=== PATIENT | male | born 1970 | race Caucasian/White ===

== ENCOUNTER 2021-01-30 17:38 | Inpatient (IN) | payer OTHER ==
[~2021-01-30] VITALS: Ht 175.3 cm; Wt 121.1 kg
[2021-01-30 18:08] LABS: BASOPHILS ABSOLUTE AUTO 0.03 K/mm3 (0.00-0.23); BASOPHILS PERCENT AUTO 1 % (0-2); EOSINOPHILS ABSOLUTE AUTO 0.19 K/mm3 (0.00-0.68); EOSINOPHILS PERCENT AUTO 3 % (0-6); Hematocrit 33.5 % (37.0-53.0); Hemoglobin 11.5 g/dL (13.5-17.5); IMMATURE GRAN ABSOLUTE AUTO 0.02 K/mm3 (0.00-0.10); IMMATURE GRAN PERCENT AUTO 0 % (0-1); LYMPHOCYTES PERCENT AUTO 12 % (21-46); MONOCYTES ABSOLUTE AUTO 0.55 K/mm3 (0.16-1.47); MONOCYTES PERCENT AUTO 9 % (4-13); Mean Corpuscular HGB Conc 34.3 g/dL (31.5-36.5); Mean Corpuscular Volume 90 fL (80-100); Mean Platelet Volume 10.7 fL (9.1-12.4); NEUTROPHILS ABSOLUTE AUTO 4.84 K/mm3 (1.96-9.15); NEUTROPHILS PERCENT AUTO 75 % (41-73); Platelet Count 74 K/mm3 (150-400); RDW Coefficient Variation 14.1 % (11.7-14.2); RDW Standard Deviation 45.7 fL (35.1-46.3); Red Blood Cell Count 3.71 M/mm3 (4.30-5.90); White Blood Cell Count 6.43 K/mm3 (4.00-11.30)
[2021-01-30 18:16] LABS: Source, Urine Catheter
[2021-01-30 18:19] LABS: International Normalized Ratio 1.3; Prothrombin Time Results 13.4 Sec (9.7-11.5)
[2021-01-30 18:22] LABS: Appearance, Urine Clear (Clear); Bilirubin, Urine Neg (Neg); Blood, Urine 3+ (Neg); Color, Urine Yellow (P-Yellow); Glucose Qualitative, Urine Neg (Neg); Ketones, Urine Neg (Neg); Leukocyte Esterase, Urine Neg (Neg); Nitrite, Urine Neg (Neg); Protein, Urine 2+ (Neg); Specific Gravity, Urine 1.015 (1.003-1.022); Urobilinogen, Urine NORM (Normal)
[2021-01-30 18:22] LABS: Alanine Aminotransfer (ALT/SGP 30 U/L (12-78); Albumin, Blood 2.3 g/dL (3.4-5.0); Albumin/Globulin Ratio 0.5 (0.8-1.8); Alk Phos 72 U/L (50-136); Anion Gap 9 mmol/L (6-16); Aspartate Aminotrans (AST/SGOT 60 U/L (12-37); Bilirubin, Total 2.7 mg/dL (0.1-1.0); Blood Urea Nitrogen 51 mg/dL (8-24); CO2, Blood 19 mmol/L (21-32); Calcium, Blood 8.5 mg/dL (8.5-10.1); Chloride, Blood 108 mmol/L (98-108); Creatinine, Blood 3.64 mg/dL (0.60-1.20); Ethanol (Alcohol), Blood, Med <3 mg/dL; Globulin, Blood 5.1 g/dL (2.2-4.0); Glomerular Filtration Rate 15 (60-); Glucose, Blood 95 mg/dL (70-99); Magnesium, Blood 2.2 mg/dL (1.6-2.4); Potassium, Blood 5.3 mmol/L (3.5-5.5); Sodium, Blood 136 mmol/L (136-145); Total Protein, Blood 7.4 g/dL (6.4-8.2); Troponin I <0.015 ng/mL (0.000-0.040)
[2021-01-30 18:31] LABS: Amorphous Light (0-Heavy); Bacteria Rare /hpf; Squamous Epithelial Cells Few /hpf (Few); White Blood Cells, Urine 0-2 /hpf (0-5)
[2021-01-30 19:07] LABS: U Amphetamine Screen Not Detected; U Barbituate Screen Not Detected; U Benzodiazapine Screen Not Detected; U Buprenorphine Screen Not Detected; U Cannabinoids Screen Not Detected; U Cocaine Screen Not Detected; U Methadone Screen Not Detected; U Methamphetamine Screen Not Detected; U Opiates Screen Not Detected; U Oxycodone Screen DETECTED; U Phencyclidine Screen Not Detected; U Propoxyphene Screen Not Detected
[2021-01-30 20:24] LABS: Albumin, Blood 2.4 g/dL (3.4-5.0)
[2021-01-31 04:18] LABS: Hematocrit 34.8 % (37.0-53.0); Hemoglobin 11.7 g/dL (13.5-17.5); Mean Corpuscular HGB 30.8 pg (26.0-34.0); Mean Corpuscular HGB Conc 33.6 g/dL (31.5-36.5); Mean Corpuscular Volume 92 fL (80-100); Mean Platelet Volume 11.5 fL (9.1-12.4); Platelet Count 63 K/mm3 (150-400); RDW Coefficient Variation 14.2 % (11.7-14.2); RDW Standard Deviation 47.2 fL (35.1-46.3); White Blood Cell Count 9.89 K/mm3 (4.00-11.30)
[2021-01-31 04:35] LABS: Albumin, Blood 2.4 g/dL (3.4-5.0); Albumin/Globulin Ratio 0.5 (0.8-1.8); Bilirubin, Total 3.2 mg/dL (0.1-1.0); Bun/Creatinine Ratio 17.1 (12.0-20.0); Calcium, Blood 8.8 mg/dL (8.5-10.1); Creatinine, Blood 2.93 mg/dL (0.60-1.20); Globulin, Blood 4.5 g/dL (2.2-4.0); Potassium, Blood 4.7 mmol/L (3.5-5.5); Total Protein, Blood 6.9 g/dL (6.4-8.2)
--- NOTE | 2021-01-31 05:52 | NUR ---
SHIFT SUMMARY PATIENT ADMITTED TO FLOOR AT APPROXIMETLY 2215. FOUND TO BE LETHARGIC, NOT FOLLOWING COMMANDS, AND AROUSABLE TO PAINFUL STIMULI. FREQUENT MOANING WITH ANY MOVEMENT. BECOMING MORE ALERT AND RESPONSIVE THROUGHOUT SHIFT, AND AROUND 444 HAD TO PUT RESTRAINTS ON PATIENT BEGAN THRASHING IN BED AND PULLING AT LINES. NO COOPERATIVE WITH CARE AT THIS TIME AND SCREAMING PROFANITIES AT STAFF BUT CAN MOVE ALL EXTREMETIES. SEIZURE PRECAUTIONS IN PLACE. VSS. NSR ON THE MONITOR. ON RA. UPPER AIRWAY WITH SCATTERED RHONCHI AND EX WHEEZES HEARD THROUGHOUT. SHALLOW, ABDOMINAL BREATHING. ABDOMEN MODERATLY DISTENDED AND UMBILICAL HERNIA NOTED. RECTAL TUBE INSERTED FOR LACTULOSE ENEMA WITH DECENT OUTPUT. NG IN PLACE AND CLAMPED. VILLAVICENCIO CATH DRAINING TO GRAIVTY WITH DARK DRU URINE. INCREASING AGITATED NOTE IS BEING WRITTEN, TRYING TO BREAK OUT RESTRAINTS, SCREAMING AT STAFF. WILL CONTINUE PLAN OF CARE UNTIL REPORT GIVEN TO RASHAAD RN.
--- NOTE | 2021-01-31 08:30 | NUR ---
INITIAL ASSESSMENT: Patient has his eyes closed and is constantly moving around in the bed. He is disoriented and keeps stating, "please," but is not able to tell me what he needs assistance with. He is not able to tell me his name, , or location. LS coarse with exp wheezing t/o, biox wnl on RA. HRR. BT +, abdomen is very distended and patient has large unbillical hernia. Patient has three way rojas, patent and draining dark orange urine, pt is pulling on rojas with his foot-he is able to get the tubing under his heel and is pulling. Patient was able to pull his rectal tube out with heel also. PPP. Patient has brownish discoloration to BLE, PP faint and thready. VSS. Patient given bed bath and linen changed. Patient was in tough cuffs to protect lines and tubes, however he was able to pull out his right AC IV. When turning while giving the bedbath, pt pulled out NGT-he has a bloody nose. He is much more calm with the NGT out. When left undisturbed he rolls on his left side and falls asleep. Bed alarm on for safety, will continue to monitor.
--- NOTE | 2021-01-31 09:45 | NUR ---
Patient to US, aprox 1100 cc removed from paracentesis. Pharmacy contacted hospitalist, no orders for albumin at this time. Patient is back to room resting comfortably on his right side.
--- NOTE | 2021-01-31 12:00 | NUR ---
Update: VSS. I attempted to put the rectal tube back in because patient is still having a difficult time with following directions. He rolled over when I attemped to place the rectal tube and refused to have it put in. He was able to pass a bedside swallow eval, I talked with MD about switching the lactulose to PO, she would like speech therapy to come and see the patient first. I spoke with speech therapy, they will be by to see him shortly.
[2021-01-31 12:05] LABS: Albumin, Body Fluid 0.2 g/dL
[2021-01-31 12:08] LABS: pH, Body Fluid 7.3
[2021-01-31 12:13] LABS: Automated BF RBC Count 0.019 M/mm3 (0-0); Automated BF WBC Count 0.429 K/mm3 (0-999); Body Fluid WBC Count 429 /mm3 (0-999); RBC Count, Body Fluid 19000 /mm3 (0-0)
[2021-01-31 12:19] LABS: Glucose, Body Fluid 90 mg/dL
[2021-01-31 12:21] LABS: Lactate Dehydrogenase, Body Fl 50 U/L
[2021-01-31 12:46] LABS: Appearance, Body Fluid Cloudy (Clear); Color, Body Fluid Red (None-Yellow); Total Cell Count, Body Fluid 100
[2021-01-31 14:36] LABS: Bun/Creatinine Ratio 21.4 (12.0-20.0); Calcium, Blood 8.6 mg/dL (8.5-10.1); Creatinine, Blood 2.1 mg/dL (0.60-1.20); Potassium, Blood 4.6 mmol/L (3.5-5.5)
--- NOTE | 2021-01-31 16:30 | NUR ---
UPDATE: Assessment unchanged. VSS, oxygen saturations down to 94%, pt still has ronchi t/o. Son at bedside, he states his whole family had RSV recently. MD notified. Patient and son deny other needs at this time. Call light in reach, will continue to monitor.
--- NOTE | 2021-01-31 18:41 | NUR ---
Summary: Patient had improvements in mentation today, by the end of the shift he was able to tell me his birthday and the name of his children, where as at the beginning of the shift he would not state his birthday. His lactulose was switched to oral after mentation improved. Patient had his paracentesis today, approx 1.3L removed, pt tolerated well-the site has continued to ooze serro-sang fluid absorbent dressing to right abd. VSS, LS with rhochi t/o-biox high 90s on RA. Bed alarm on for safety, once oriented I reiterated he needed to use his call light to get OOB, call light in reach.
[2021-01-31 20:14] LABS: Adenovirus Not Detected (NOT DETECT); Bordetella pertussis Not Detected (NOT DETECT); Chlamydophila pneumoniae Not Detected (NOT DETECT); Coronavirus 229E Not Detected (NOT DETECT); Coronavirus HKU1 Not Detected (NOT DETECT); Coronavirus NL63 Not Detected (NOT DETECT); Coronavirus OC43 Not Detected (NOT DETECT); Human Metapneumovirus Not Detected (NOT DETECT); Human Rhinovirus/Enterovirus Detected (NOT DETECT); Influenza A/2009-H1 Not Detected (NOT DETECT); Influenza A/H1 Not Detected (NOT DETECT); Influenza A/H3 Not Detected (NOT DETECT); Influenza B Not Detected (NOT DETECT); Mycoplasma pneumoniae Not Detected (NOT DETECT); Parainfluenza Virus 1 Not Detected (NOT DETECT); Parainfluenza Virus 2 Not Detected (NOT DETECT); Parainfluenza Virus 3 Not Detected (NOT DETECT); Parainfluenza Virus 4 Not Detected (NOT DETECT); Respiratory Syncytial Virus Detected (NOT DETECT); SARS-Cov-2 (COVID-19), BioFire Not Detected (NOT DETECT)
[2021-02-01 04:25] LABS: BASOPHILS ABSOLUTE AUTO 0.03 K/mm3 (0.00-0.23); BASOPHILS PERCENT AUTO 1 % (0-2); EOSINOPHILS PERCENT AUTO 3 % (0-6); Hematocrit 30.1 % (37.0-53.0); Hemoglobin 10.2 g/dL (13.5-17.5); IMMATURE GRAN ABSOLUTE AUTO 0.02 K/mm3 (0.00-0.10); IMMATURE GRAN PERCENT AUTO 0 % (0-1); LYMPHOCYTES ABSOLUTE AUTO 1.36 K/mm3 (0.84-5.20); LYMPHOCYTES PERCENT AUTO 21 % (21-46); MONOCYTES ABSOLUTE AUTO 0.74 K/mm3 (0.16-1.47); MONOCYTES PERCENT AUTO 11 % (4-13); Mean Corpuscular HGB 30.8 pg (26.0-34.0); Mean Corpuscular HGB Conc 33.9 g/dL (31.5-36.5); Mean Corpuscular Volume 91 fL (80-100); Mean Platelet Volume 11.3 fL (9.1-12.4); NEUTROPHILS ABSOLUTE AUTO 4.21 K/mm3 (1.96-9.15); NEUTROPHILS PERCENT AUTO 64 % (41-73); Platelet Count 55 K/mm3 (150-400); RDW Coefficient Variation 14.4 % (11.7-14.2); RDW Standard Deviation 47.7 fL (35.1-46.3); Red Blood Cell Count 3.31 M/mm3 (4.30-5.90); White Blood Cell Count 6.56 K/mm3 (4.00-11.30)
[2021-02-01 05:21] LABS: Bun/Creatinine Ratio 23.4 (12.0-20.0); Calcium, Blood 8.2 mg/dL (8.5-10.1); Creatinine, Blood 1.67 mg/dL (0.60-1.20); Potassium, Blood 4.1 mmol/L (3.5-5.5)
--- NOTE | 2021-02-01 06:02 | NUR ---
SHIFT SUMMARY PATIENT FOUND TO BE A&OX3, FOLLOWING COMMANDS, FORGETFUL, AND COMPLIANT WITH CARE. APOLOGETIC FOR LAST NIGHTS BEHAVIOR. VSS. NSR ON THE MONITOR IN THE 70'S. ON RA. SEIZURE PRECAUTIONS IN PLACE DROPLET PRECAUTIONS ENACTED D/T POSITIVE RSV RESULT. CONTINUES TO HAVE EX WHEEZES AND UPPER RHONCHI BUT NOW CLEARING COUGH BETTER. PRODUCTIVE COUGH AT TIMES. SOME DYSPNEA ON EXERTION. MOVES SELF WELL IN BED. INCONTINENT OF STOOL IN BRIEF X3 SO HELD EVENING LACTULOSE DOSE HAD 5BMS DURING DAY WELL. DID NOT GET UP OVERNIGHT BUT APPARENTLY BEEN GETTING UP TO BSC WITH ONE ASSIST. VILLAVICENCIO REMOVED EARLY AM IT WAS REALLY IRRITATING PATIENT. MET DTV BUT INCONTINENT. FRESH ATTENDS IN PLACE. TOLERATING SOFT CARDIAC DIET WITHOUT ISSUE. NEEDS FULL TRAY SET UP BUT CAN FEED HIMSELF. FALL PRECUATIONS IN PLACE. NO ACUTE CONCERNS AT THIS TIME. WILL CONTINUE PLAN OF CARE UNTIL REPORT GIVEN TO RASHAAD MAJANO.
[2021-02-01 09:00] LABS: HBSAG SCREEN Negative (Negative); HEP A AB, IGM Negative (Negative); HEP B CORE AB, IGM Negative (Negative); HEP C VIRUS AB <0.1 (0.0-0.9)
--- NOTE | 2021-02-01 10:32 | NUR ---
Pt ambulated in reece without any issues.
--- NOTE | 2021-02-01 10:54 | NUR ---
Pt still reporting severe pain after flexeril, requesting oxycodone 10mg like he takes at home. attempted to call x2, LVM
[2021-02-01] MEDS ORDERED: FURO20 PO (11:58)
[2021-02-01] MEDS ORDERED: LACT10SY PO (12:00)
[2021-02-01] MEDS ORDERED: FOLI1 PO (12:11)
[2021-02-01] MEDS ORDERED: SPIR25 PO (12:12)
[2021-02-01] MEDS ORDERED: B-1100 M1 PO (12:12)
--- NOTE | 2021-02-01 12:16 | NUR ---
Pt is alert and oriented x3, anxious and agitated at times. Pain reported in back, prn flexeril and toradol given with some relief. Powerglide was removed prior to d/c. Abd distended. Several BMs today and lactulose po given. Tele: SR 70s prior to d/c. Droplet precautions maintained. Pt is urinating without difficulty.
== END 2021-02-01 12:35 | disposition home or self-care (01) | DRG 432 ==
LOC: EDBD 17:38 → ER 17:38 → PCU 20:04
PROVIDERS: Emergency Medicine; Student in an Organized Health Care Education/Training Program; ADMIT Internal Medicine
PROC: 0W9G3ZZ Drainage of Peritoneal Cavity, Percutaneous Approach (ICD-10-PCS; principal; 2021-01-31)
DX: K70.40 Alcoholic hepatic failure without coma (principal); G92.8 Other toxic encephalopathy; N17.9 Acute kidney failure, unspecified; F10.139 Alcohol abuse with withdrawal, unspecified; Z20.822 Contact with and (suspected) exposure to COVID-19; K70.31 Alcoholic cirrhosis of liver with ascites; Z28.89 Immunization not carried out for other reason; E86.0 Dehydration; D69.6 Thrombocytopenia, unspecified; I10 Essential (primary) hypertension
CPT/HCPCS: 0202U; 36415; 49083; 51702; 70450; 71045; 80048; 80053; 80074; 81001; 82040; 82042; 82140; 82607; 82746; 82945; 82947; 83605; 83615; 83690; 83735; 83880; 83986; 84145; 84157; 84484; 85025; 85027; 85055; 85610; 88108; 88305; 89051; 92610; 93005; 93010; 96374; 99285-25; A9270; C1751; G0480; J1885; J2060; J3411; J7030; J7120